=== PATIENT | male | born 1950 | race Caucasian/White ===

== ENCOUNTER → 2017-07-05 | Outpatient (REF) ==
[2017-07-05 22:51] LABS: PSA-TOTAL 0.33 ng/mL (0-4); THYROID STIMULATING HORMONE 3.57 uIU/mL (0.465-4.680)
== END ==
LOC: ZLAB.WCH 19:06
PROVIDERS: Internal Medicine
DX: Z01.89 Encounter for other specified special examinations (principal)
CPT/HCPCS: G0103

== ENCOUNTER 2017-08-26 08:00 | Outpatient (RCR) | payer MEDICARE | END 2017-11-21 | disposition home or self-care (01) | LOC: MKS.ESL.PT | DX: G63 Polyneuropathy in diseases classified elsewhere (principal); E11.9 Type 2 diabetes mellitus without complications | CPT/HCPCS: G8990-GP; G8991-GP ==

== ENCOUNTER 2017-10-04 08:00 | Outpatient (RCR) | payer MEDICARE | END 2017-11-21 | LOC: MKS.ESL.PT | DX: G63 Polyneuropathy in diseases classified elsewhere (principal); E11.9 Type 2 diabetes mellitus without complications ==

== ENCOUNTER → 2017-10-04 | Outpatient (REF) | LOC: ZLAB.WCH 17:52 | DX: Z01.89 Encounter for other specified special examinations (principal) ==

== ENCOUNTER → 2018-01-21 | Outpatient (REF) | LOC: ZLAB.WCH 18:07 | DX: Z01.89 Encounter for other specified special examinations (principal) ==